=== PATIENT | male | born 1960 | race Caucasian/White ===

== ENCOUNTER 2017-03-30 08:15 | Day surgery (SDC) | payer BC ==
[~2017-03-30] VITALS: Ht 177.8 cm; Wt 88.9 kg
[2017-03-30 09:39] VITALS: BP 149/95; PULSE 78; TEMP 97.9
[2017-03-30] MEDS ORDERED: BENADRYL25 M2 PO (09:47)
[2017-03-30] MEDS ORDERED: TYLENOL 500MG500 MG PO (09:48)
[2017-03-30] MEDS ORDERED: KENALOG-1010 MG/ML (09:49)
[2017-03-30 10:00] VITALS: BP 125/87; PULSE 73; TEMP 97.5
[2017-03-30 10:15] VITALS: BP 130/82; PULSE 64
[2017-03-30 10:30] VITALS: BP 116/91; PULSE 63
[2017-03-30 10:45] VITALS: BP 111/77; PULSE 64
[2017-03-30 12:29] VITALS: BP 127/88; PULSE 68
== END 2017-03-30 11:10 | disposition home or self-care (01) ==
LOC: SDCO 08:15
DX: Z12.11 Encounter for screening for malignant neoplasm of colon (principal); K57.30 Diverticulosis of large intestine without perforation or abscess without bleeding; K64.0 First degree hemorrhoids; L40.9 Psoriasis, unspecified
CPT/HCPCS: OP; J2250; J3010; J7030